=== PATIENT | female | born 1995 | race Hispanic/Latino ===

== ENCOUNTER 2017-06-07 15:24 | Inpatient (IN) | payer BC, MEDICAID ==
[~2017-06-07] VITALS: Ht 157.5 cm; Wt 65.3 kg
[2017-06-07 16:35] LABS: APPEARANCE,URINE Cloudy (CLEAR); BILIRUBIN,URINE Moderate (NEGATIVE); COLOR,URINE Dark Yellow (YELLOW); GLUCOSE, URINE (UA) Negative (NEGATIVE); KETONES,URINE >=80 mg/dL (NEGATIVE); LEUKOCYTE ESTERASE ,URINE Moderate (NEGATIVE); NITRATE,URINE Negative (NEGATIVE); OCCULT BLOOD,URINE Large (NEGATIVE); PH,URINE 5.5 (5.0-8.0); PROTEIN,URINE Trace (NEGATIVE)
[2017-06-07 16:48] LABS: BACTERIA,URINE Few /HPF (None Seen); RBC,URINE 0-1 /HPF (0-1); SQUAMOUS EPITHELIAL CELL,UR 30-50 /LPF (0-2)
[2017-06-07] MEDS ORDERED: CEFTRIAXONE 1GM/D5W 50ML 50 ML IV SCH (17:15)
[2017-06-07] MEDS: CEFTRIAXONE SODIUM 1 GM IVP SCH (18:07)
[2017-06-07] MEDS: LACTATED RINGERS 1000ML 1,000 ML IV PRN ×2 (18:07→20:37)
[2017-06-07 20:58] LABS: HEMATOCRIT 30.3 % (36-48); MEAN CORPUSCULAR HEMOGLOBIN 26.2 pg (27.0-33.0); MEAN CORPUSCULAR VOLUME 79.4 fL (79-99); PLATELET COUNT (AUTO) 265 K/uL (130-400); RED BLOOD CELL COUNT(AUTO) 3.82 MIL/uL (4.00-5.50); RED CELL DISTRIBUTION WIDTH 13.3 % (11.0-15.5); WHITE BLOOD COUNT (AUTO) 11.6 K/uL (4.8-10.8)
[2017-06-07] MEDS ORDERED: LACTATED RINGERS 1000ML 1,000 ML IV SCH (21:15)
[2017-06-07] MEDS ORDERED: CEFAZOLIN SODIUM 1 GM VIAL IVP PRN (21:15)
[2017-06-07] MEDS ORDERED: CEFAZOLIN SODIUM 1 GM VIAL ONE (21:23)
[2017-06-07] MEDS ORDERED: CEFAZOLIN SODIUM 1 GM VIAL IVP ONE (21:50)
[2017-06-07] MEDS: OXYTOCIN-LR 20 UNITS/1000 ML 1,000 ML IV SCH (23:00)
[2017-06-07] MEDS: DIPH,PERTUSS(ACELL),TET VAC/PF 0.5 ML VIAL IM SCH (23:15)
[2017-06-07] MEDS ORDERED: DIPHENHYDRAMINE HCL 25 MG CAPSULE PO PRN (23:15)
[2017-06-07] MEDS ORDERED: DEXTROSE 5 %-0.45 % NACL 1,000 ML IV PRN (23:15)
[2017-06-07] MEDS ORDERED: BISACODYL 10 MG SUPP.RECT RC PRN (23:15)
[2017-06-07] MEDS: MEASLES/MUMPS/RUBELLA VACCINE, LIVE 0.5 ML/VIAL SQ SCH (23:15)
[2017-06-08] VITALS (7 sets, daily range): BP systolic 114–123; BP diastolic 62–75
[2017-06-08] MEDS: ACETAMINOPHEN-CODEINE 300/30MG TAB PO PRN (01:26)
[2017-06-08] MEDS: CEFTRIAXONE SODIUM 1 GM IVP SCH (03:39)
[2017-06-08] MEDS: OXYTOCIN-LR 20 UNITS/1000 ML 1,000 ML IV SCH (03:40)
[2017-06-08] MEDS: IBUPROFEN 600 MG TABLET PO PRN ×2 (04:05→21:22)
[2017-06-08] MEDS ORDERED: ONDANSETRON HCL 4 MG/2 ML 8 MG in SODIUM CHLORIDE 0.9% 50 ML IVP NR (06:15)
[2017-06-08] MEDS ORDERED: PROMETHAZINE HCL 25 MG/ML 1ML AMPULE IM PRN (06:15)
[2017-06-08] MEDS ORDERED: DiphenhydrAMINE HCL 50 MG/ML VIAL IVP PRN (06:15)
[2017-06-08] MEDS ORDERED: MORPHINE SULFATE 2 MG/ML 1ML SYG IVP PRN (06:15)
[2017-06-08] MEDS ORDERED: HYDROCODONE/ACETAMINOPHEN 5/325 MG TAB PO PRN (06:15)
[2017-06-08] MEDS ORDERED: METOCLOPRAMIDE 10 MG/2 ML VIAL IVP PRN (06:15)
[2017-06-08] MEDS ORDERED: EPHEDRINE SULFATE 50 MG/ML AMPULE IVP PRN (06:15)
[2017-06-08] MEDS ORDERED: ONDANSETRON HCL 4 MG/2 ML VIAL IVP PRN ×2 (06:15)
[2017-06-08] MEDS ORDERED: NALOXONE HCL 0.4 MG/1 ML ML IVP PRN (06:15)
[2017-06-08] MEDS: HYDROCODONE/ACETAMINOPHEN 5/325 MG TAB PO PRN ×4 (06:22→23:58)
[2017-06-08] MEDS: DOCUSATE SODIUM 100 MG CAP PO SCH ×2 (09:22→21:03)
[2017-06-08] MEDS: SIMETHICONE 80 MG TAB.CHEW PO PRN ×3 (09:22→21:03)
[2017-06-08] MEDS: FLU VACC QS2017-18 36MOS UP/PF 60 MCG/0.5 ML ML IM SCH (09:22)
[2017-06-08] MEDS: DIPH,PERTUSS(ACELL),TET VAC/PF 0.5 ML VIAL IM SCH (09:33)
[2017-06-08] MEDS: MEASLES/MUMPS/RUBELLA VACCINE, LIVE 0.5 ML/VIAL SQ SCH (09:35)
[2017-06-08 12:03] LABS: HEMATOCRIT 27.2 % (36-48); MEAN CORPUSCULAR VOLUME 79.4 fL (79-99); PLATELET COUNT (AUTO) 261 K/uL (130-400); RED BLOOD CELL COUNT(AUTO) 3.42 MIL/uL (4.00-5.50); RED CELL DISTRIBUTION WIDTH 13.2 % (11.0-15.5); WHITE BLOOD COUNT (AUTO) 13.7 K/uL (4.8-10.8)
[2017-06-09] MEDS: FLU VACC QS2017-18 36MOS UP/PF 60 MCG/0.5 ML ML IM SCH (01:19)
[2017-06-09] MEDS: CEFTRIAXONE SODIUM 1 GM IVP SCH (01:20)
[2017-06-09] MEDS: DIPH,PERTUSS(ACELL),TET VAC/PF 0.5 ML VIAL IM SCH (01:20)
[2017-06-09] MEDS: MEASLES/MUMPS/RUBELLA VACCINE, LIVE 0.5 ML/VIAL SQ SCH (01:20)
[2017-06-09 03:14] VITALS: BP 110/68
[2017-06-09 07:34] VITALS: BP 126/80
[2017-06-09] MEDS: DOCUSATE SODIUM 100 MG CAP PO SCH (08:28)
[2017-06-09] MEDS: SIMETHICONE 80 MG TAB.CHEW PO PRN ×2 (08:28→13:05)
[2017-06-09] MEDS: IBUPROFEN 600 MG TABLET PO PRN (08:30)
[2017-06-09] MEDS: ACETAMINOPHEN-CODEINE 300/30MG TAB PO PRN (11:05)
[2017-06-09 11:51] VITALS: BP 111/70
[2017-06-09 14:09] LABS: HEPATITIS Bs ANTIGEN SCREEN P Negative (Negative)
== END 2017-06-09 15:15 | disposition home or self-care (01) | DRG 766 ==
LOC: EDH 15:24 → LDH 15:25 → OBSVTOIN 15:25 → LDH 16:14 → WSH 06-08 01:45
PROVIDERS: ADMIT Obstetrics & Gynecology; ATTEND Obstetrics & Gynecology
PROC: 10D00Z1 Extraction of Products of Conception, Low, Open Approach (ICD-10-PCS; 2017-06-07)
PROC: 3E0234Z Introduction of Serum, Toxoid and Vaccine into Muscle, Percutaneous Approach (ICD-10-PCS; principal; 2017-06-09)
PROC: 3E0134Z Introduction of Serum, Toxoid and Vaccine into Subcutaneous Tissue, Percutaneous Approach (ICD-10-PCS; 2017-06-09)
PROC: 3E0234Z Introduction of Serum, Toxoid and Vaccine into Muscle, Percutaneous Approach (ICD-10-PCS; 2017-06-09)
DX: O69.81X0 Labor and delivery complicated by cord around neck, without compression, not applicable or unspecified (principal); O34.211 Maternal care for low transverse scar from previous cesarean delivery; O77.0 Labor and delivery complicated by meconium in amniotic fluid; Z37.0 Single live birth; Z23 Encounter for immunization; Z3A.39 39 weeks gestation of pregnancy
CPT/HCPCS: 36415; 59510; 76805; 81001; 85027; 86592; 86850; 86900; 86901; 87340; 90707; 90715; 96360; 96361; A4218; A4344; A4450; A4606; J0690; J0696; J2550; J7120; Q2038